=== PATIENT | female | born 1990 | race African-American/Black ===

== ENCOUNTER 2021-12-20 13:05 | Emergency (ER) | payer OTHER ==
[~2021-12-20] VITALS: Ht 177.8 cm; Wt 77.1 kg
== END 2021-12-20 17:17 | disposition home or self-care (01) ==
LOC: FSED 13:34
DX: O46.91 Antepartum hemorrhage, unspecified, first trimester (principal); O46.8X1 Other antepartum hemorrhage, first trimester
CPT/HCPCS: 36415; 76801; 76830; 81003; 81025; 84702; 85025; 86900; 99284